=== PATIENT | male | born 1940 | race Caucasian/White ===

== ENCOUNTER → 2016-06-27 | Outpatient (CLI) | payer OTHER | LOC: BHFA 13:30 | PROVIDERS: ATTEND Internal Medicine Cardiovascular Disease | DX: R00.2 Palpitations (principal) ==

== ENCOUNTER 2017-09-26 15:44 | Inpatient (IN) | payer OTHER ==
[2017-09-26] MEDS ORDERED: ONDANSETRON 4 MG/2 ML VIAL IVP ONE (16:04)
[2017-09-26] MEDS ORDERED: NS 1,000 ML IV ONE ×2 (16:04→17:20)
--- NOTE | 2017-09-26 16:04 | EDPHY ---
H & P Stated Complaint: abd pain Source: Patient, Old records Exam Limitations: No limitations - Personal History Current Tetanus/Diphtheria Vaccine: Unsure Current Tetanus Diphtheria and Acellular Pertussis (TDAP): Unsure - Medical/Surgical History Hx Asthma: No Hx Chronic Respiratory Disease: No Hx Diabetes: No Hx Cardiac Disease: No Hx Renal Disease: No Hx Cirrhosis: No Hx Alcoholism: No Hx HIV/AIDS: No Hx Splenectomy or Spleen Trauma: No Other PMH: hyperlipidemia - Social History Smoking Status: Never smoked Time Seen by Provider: 09/26/17 15:57 HPI/ROS: HPI: This is a 77-year-old male who presents with Chief Complaint: abdominal pain Location: periumbilical pain Quality: pain Duration: last night around 8 pm Signs and Symptoms: no fever, + nausea, + vomiting, no hematemesis, no blood in stool, no abdominal bloating, + diarrhea, no back pain, no urinary symptoms, no testicular/groin pain, no indigestion, no chest pain, no shortness of breath Timing:acute Severity:12/22 Context: Patient presents from imaging at this hospital for abdominal x-ray showing nonspecific bowel gas pattern concentrated in the right lower quadrant. Patient presents with complaints of sudden onset around 8:00 p.m.while sitting watching TV of periumbilical moderate, constant nonradiating tenderness. Reports that he ate dinner without difficulty. Nothing made the pain worse or better. He reports that he developed nausea last night and vomited his stomach contents yesterday evening. This morning he called his primary care provider, Dr. Faye, who was able to see him around 9:00 a.m. At that time, laboratory studies were performed and he was sent to outpatient imaging for abdominal x-ray. Patient reports that on the way to the hospital he then again developed some nausea and vomited again. He reports that he has had 2 loose stools within the last 24 hr. Denies any fever/back pain/ testicular groin pain/urinary symptoms. Patient has not eaten any food today. Around 1 or 2:00 p.m. he had approximately 4-6 oz of hot tea with milk. Modifying Factors: see above Comment: ROS: see HPI Constitutional: No fever, no chills, no weight loss Eyes: No blurred vision Respiratory: No shortness of breath, no cough Cardiovascular: No chest pain, no palpitations Gastrointestinal: + nausea, + vomiting, + diarrhea, no hematemesis, no blood in stool Genitourinary: No dysuria, no blood in urine Extremities: No myalgias, no edema Neurologic: No weakness, no numbness Skin: No rashes, no petechiae Hematologic: No bruising, no bleeding MEDICAL/SURGICAL/SOCIAL HISTORY: Medical history: Hyperlipidemia Surgical history: Denies Social history: Retired. . Family history noncontributory. CONSTITUTIONAL: Extremely pleasant polite and cooperative nontoxic-appearing elderly white male, at bedside, awake and alert, no obvious distress HEENT: Atraumatic and normocephalic, PERRL, EOMI. Nares patent; no rhinorrhea; no nasal mucosal edema. Tympanic membranes clear. Oropharynx clear, no exudate and dry oral mucosa. Airway patent. No lymphadenopathy. No meningismus. Cardiovascular: Normal S1/S2, regular rate, regular rhythm, without murmur rub or gallop. PULMONARY/CHEST: Symmetrical and nontender. Clear to auscultation bilaterally. Good air movement. No accessory muscle usage. ABDOMEN: Soft, mildly distended, periumbilical moderate tenderness; no right lower quadrant tenderness; no rebound, no guarding, no peritoneal signs, no masses or organomegaly. No CVAT. Hyperactive bowel sounds x4. EXTREMITIES: 2/2 pulses, strength 5/5, no deformities, no clubbing, no cyanosis or edema. NEUROLOGICAL: no focal neuro deficits. GCS 15. SKIN: Warm and dry, no erythema. no rash. Good capillary refill. ([place]) Constitutional: Initial Vital Signs Temperature (C) 37 C 09/26/17 15:49 Heart Rate 84 09/26/17 15:49 Respiratory Rate 16 09/26/17 15:49 Blood Pressure 136/94 H 09/26/17 15:49 O2 Sat (%) 96 09/26/17 15:49 O2 Delivery Mode Room Air Allergies/Adverse Reactions: No Known Allergies Allergy (Unverified 09/26/17 15:48) Home Medications: Medication Instructions Recorded Aspirin [Aspirin 81mg (*)] 81 mg PO HS 09/26/17 Azithromycin 500 mg PO DAILY 09/26/17 Naproxen Sodium [Aleve 220 MG (*)] 110 mg PO DAILY PRN 09/26/17 Rosuvastatin Calcium [Crestor] 5 mg PO HS 09/26/17 Zolpidem Tartrate [Ambien 5MG (*)] 2.5 mg PO HS PRN 09/26/17 Medical Decision Making - Diagnostics Imaging Results: Imaging Impressions Abdomen X-Ray 09/26/17 10:19 Impression: Nonspecific right flank air-fluid levels. If there is concern for appendicitis, consider CT. A message was left for Dr. Faye at 11:[address] 09/26/17 16:04 Impression: 1. Moderate distention of mid to distal small bowel to the terminal ileum level where there is suspicion of intussusception of the terminal ileum into the cecum. Consider colonoscopy for further characterization to rule out possible lesion at the ileocecal valve or possibly Gastrografin enema to attempt reduction. 2. Normal appendix. Findings discussed with Viji Portillo PAC at 17:10 hour, 09/26/2017. ED Course/Re-evaluation: Reviewed labs from earlier in the morning that showed WBC of 10 K with left shift. Creatinine is 0.8. CT abdomen and pelvis scan with contrast ordered along with 1 L normal saline, IV Dilaudid 0.5 mg, and IV Zofran VS stable upon arrival Reviewed abdominal x-ray via PACs and shows nonobstructive bowel gas pattern. 1700: Called by radiologist, Dr. Abel Forrester, who reports that patient has an intussusception from the terminal ileum to the cecum with moderate bowel obstruction. No signs of appendicitis. ED decision to consult for admission. Spoke with General surgery, Dr. Pereyra, who kindly agrees to come to the emergency room to consult on patient and provide further care. Went to patient's bedside to discuss CT imaging results with patient and his . He is currently calm and comfortable and has politely declined pain medications. NPO Status. This patient was seen under the supervision of my secondary supervising physician. I evaluated care for this patient independently. Discussed this patient with Dr. Schafer who did not see the patient. (Viji Portillo) Differential Diagnosis: Abdominal pain including but not limited to appendicitis, cholecystitis, gastritis and urinary tract infection. (Viji Portillo) Other Provider: PHYSICIAN DOCUMENTATION: The patient was evaluated and managed by the Physician Corporate Relations Director and myself. I have reviewed the chart and agree with the findings and plan of care as documented. In addition, I examined the patient myself at 1615. History confirmed as epigastric abdominal pain. Physical findings as follows: Tenderness at the area of pain but no rebound or guarding. Plan for CT scan discussed and consented. Lipase added. Reviewed labs from earlier today including normal creatinine and white blood cell count [address]990. CT reviewed, plan surgical consultation, seen by Hafsa in ED. I am the secondary supervising physician. (Mani Schafer) - Data Points Medications Given: Discontinued Medications Hydromorphone HCl (Dilaudid) 0.5 mg IVP EDNOW ONE Stop: 09/26/17 16:05 Last Admin: 09/26/17 18:02 Dose: 0.5 mg Sodium Chloride (Ns) 1,000 mls @ 0 mls/hr IV EDNOW ONE; Wide Open PRN Reason: Protocol Stop: 09/26/17 16:05 Last Admin: 09/26/17 16:55 Dose: 1,000 mls Sodium Chloride (Ns) 1,000 mls @ 0 mls/hr IV EDNOW ONE; Wide Open PRN Reason: Protocol Stop: 09/26/17 17:21 Last Admin: 09/26/17 17:56 Dose: Not Given Ondansetron HCl (Zofran) 4 mg IVP EDNOW ONE Stop: 09/26/17 16:05 Last Admin: 09/26/17 16:55 Dose: 4 mg Departure - Departure Dis[facility]: [facility] In[facility] Acute Clinical Impression: Intussusception of cecum Bowel obstruction Qualifiers: Intestinal obstruction type: intussusception Qualified Code(s): K56.1 - Intussusception Condition: Fair
[2017-09-26] MEDS ORDERED: IOPAMIDOL (ISOVUE-300) 100 ML BTL ONE (16:11)
[2017-09-26] MEDS: HYDROmorphONE/DILAUDID 2 MG/ML INJ IVP ONE ×3 (18:02→18:27)
[2017-09-26] MEDS ORDERED: HYDROmorphONE/DILAUDID 1 MG/ML INJ IVP ONE (18:05)
[2017-09-26] MEDS ORDERED: ONDANSETRON 4 MG/2 ML VIAL IVP PRN ×2 (18:08→22:36)
[2017-09-26] MEDS ORDERED: LR 1,000 ML IV SCH (18:30)
--- NOTE | 2017-09-26 20:50 | PDGENHP ---
History and Physical - Chief Complaint Abdominal pain - History of Present Illness This is a 77-year-old gentleman who began having mid epigastric/umbilical abdominal pain last evening it progressed to the right lower quadrant over the course of today. He went to see his primary care doctor who ordered an x-ray. X-ray demonstrated small-bowel obstruction he was sent to the emergency room for evaluation. CT scan demonstrates inception of the terminal ileum into the right colon. The patient admits to vomiting several times prior to coming to the emergency room he has pain which is now mostly in the mid epigastric area and to the left of the umbilicus. He denies fevers or chills he has not had any abnormal bowel movements in the last while. Colonoscopies to date have been normal. History Information - Allergies/Home Medication List Allergies/Adverse Reactions: No Known Allergies Allergy (Unverified 09/26/17 15:48) Home Medications: Aspirin [Aspirin 81mg (*)] 81 mg PO HS 09/26/17 [Last Taken 09/25/17] Azithromycin 500 mg PO DAILY 09/26/17 [Last Taken 09/26/17] Naproxen Sodium [Aleve 220 MG (*)] 110 mg PO DAILY PRN 09/26/17 [Last Taken Unknown] Rosuvastatin Calcium [Crestor] 5 mg PO HS 09/26/17 [Last Taken 09/25/17] Zolpidem Tartrate [Ambien 5MG (*)] 2.5 mg PO HS PRN 09/26/17 [Last Taken Unknown ] I have personally reviewed and updated: medical history, social history, surgical history - Past Medical History Additional medical history: Hyperlipidemia - Surgical History Additional surgical history: Blepharoplasty and lacrimal duct surgery - Family History Positive for: non-pertinent - Social History Smoking Status: Never smoked Alcohol Use: Occasionally Review of Systems Review of Systems: ROS: 10pt was reviewed & negative except for what was stated in HPI & below Gastrointestinal: Reports: vomitting, abdominal pain, abdominal distention Physical Exam Physical Exam: Alert oriented to person place and time No apparent distress Appears stated age Sclerae are anicteric, pupils 3 mm reactive Oropharynx moist without lesions No JVD no thyromegaly no cervical or supraclavicular adenopathy Trachea midline Clear to auscultation bilaterally Regular rate and rhythm Abdomen softly distended tender to the left of the umbilicus no peritoneal signs No hernias 2+ over 2+ femoral pulses Extremities without edema Normal skin turgor and tone no rashes Normal affect Temp Pulse Resp BP Pulse Ox 36.2 C 80 16 130/78 H 97 09/26/17 20:00 09/26/17 20:00 09/26/17 20:00 09/26/17 20:00 09/26/17 20:00 O2 (L/minute) 2 Lab Data & Imaging Review Laboratory studies from his outpatient visit with his primary care physician reviewed White blood cell count 10.0 with a left shift Sodium 140 potassium 4.3 chloride 106 bicarb 19 BUN 17 creatinine 0.8 glucose 127 ALT 18 AST 40 alkaline phosphatase 104 calcium 9.7 Lipase 101 IU/L (23-300) 09/26/17 17:35 Imaging Review: Imaging Impressions Abdomen X-Ray 09/26/17 10:19 Impression: Nonspecific right flank air-fluid levels. If there is concern for appendicitis, consider CT. A message was left for Dr. Faye at 11:[address] 09/26/17 16:04 Impression: 1. Moderate distention of mid to distal small bowel to the terminal ileum level where there is suspicion of intussusception of the terminal ileum into the cecum. Consider colonoscopy for further characterization to rule out possible lesion at the ileocecal valve or possibly Gastrografin enema to attempt reduction. 2. Normal appendix. Findings discussed with Viji Portillo PAC at 17:10 hour, 09/26/2017. X-rays and CT scan personally reviewed on [facility] PACS system with patient and spouse Assessment & Plan Assessment: Bowel obstruction (Acute) Intussusception of cecum (Acute) Plan: Intussusception of the small bowel likely source is malignant in a patient of his age. Recommendations are right colectomy for definitive treatment. The risks benefits and alternatives to surgery have been clearly outlined with the patient. The risks include but are not limited to bleeding, infection, injury to other bowel or adjacent structures necessitating further intervention. All questions were addressed. Verbal confirmation of understanding was obtained prior to written consent. Preoperative antibiotics will be given Invanz 1 g IV.
[2017-09-26] MEDS ORDERED: PROPOFOL 200 MG/20 ML VIAL ONE (20:53)
[2017-09-26] MEDS ORDERED: ERTAPENEM 1 GM VIAL IV ONE ×2 (20:54→21:45)
[2017-09-26] MEDS ORDERED: ROCURONIUM 100 MG/10 ML VIAL ONE (20:55)
[2017-09-26] MEDS ORDERED: fentaNYL 100 MCG/2 ML INJ ONE ×4 (20:56→23:08)
[2017-09-26] MEDS ORDERED: BUPIVACAINE 0.5% 30 ML SDV ONE (21:03)
[2017-09-26] MEDS ORDERED: LIDOCAINE 1% 300 MG/30 ML SDV ONE (21:03)
[2017-09-26] MEDS ORDERED: fentaNYL 100 MCG/2 ML INJ IVP ONE (21:45)
[2017-09-26] MEDS ORDERED: NALOXONE HCL 0.4 MG/ML INJ IVP PRN (22:36)
[2017-09-26] MEDS ORDERED: HYDROmorphONE/DILAUDID 2 MG/ML INJ IVP PRN (22:36)
[2017-09-26] MEDS ORDERED: fentaNYL 100 MCG/2 ML INJ IVP PRN (22:36)
--- NOTE | 2017-09-26 22:36 | PDANEPAE ---
ANE History of Present Illness Ex-Lap possible Bowel ANE Past Medical History - Cardiovascular History Hx Hypertension: Yes Hx Coronary Artery / Peripheral Vascular Disease: Yes - Pulmonary History Hx Oxygen in Use at Home: No Hx Sleep Apnea: No Sleep Apnea Screening Result - Last Documented: Negative - Endocrine History Hx Diabetes: No ANE Review of Systems Review of Systems: - Exercise capacity Exercise capacity: >=4 METS ANE Patient History - Allergies Allergies/Adverse Reactions: No Known Allergies Allergy (Unverified 09/26/17 15:48) - Home Medications Home Medications: Aspirin [Aspirin 81mg (*)] 81 mg PO HS 09/26/17 [Last Taken 09/25/17] Azithromycin 500 mg PO DAILY 09/26/17 [Last Taken 09/26/17] Naproxen Sodium [Aleve 220 MG (*)] 110 mg PO DAILY PRN 09/26/17 [Last Taken Unknown] Rosuvastatin Calcium [Crestor] 5 mg PO HS 09/26/17 [Last Taken 09/25/17] Zolpidem Tartrate [Ambien 5MG (*)] 2.5 mg PO HS PRN 09/26/17 [Last Taken Unknown ] - NPO status NPO Since - Liquids (Date): 09/26/17 NPO Since - Liquids (Time): 14:00 NPO Since - Solids (Date): 09/25/17 NPO Since - Solids (Time): 20:00 - Smoking Hx Smoking Status: Never smoked - Alcohol Use Alcohol Use: Occasionally ANE Labs/Vital Signs - Vital Signs Blood Pressure: 130/78 Heart Rate: 82 Respiratory Rate: 16 O2 Sat (%): 96 Height: 165.1 cm Weight: 72.575 kg ANE Physical Exam - Airway Neck exam: FROM Mallampati Score: Class 2 Mouth exam: normal dental/mouth exam - Pulmonary Pulmonary: clear to auscultation - Cardiovascular Cardiovascular: regular rate and rhythym - ASA Status ASA Status: II, E ANE Anesthesia Plan Anesthesia Plan: general endotracheal anesthesia
[2017-09-26] MEDS ORDERED: ONDANSETRON 4 MG/2 ML VIAL ONE (23:08)
[2017-09-26] MEDS ORDERED: DEXAMETHASONE 4 MG/ML VIAL ONE (23:08)
[2017-09-26] MEDS ORDERED: SUGAMMADEX SODIUM 200 MG/2 ML VIAL IVP ONE (23:49)
--- NOTE | 2017-09-27 00:11 | POSTOPPROG ---
Post Op Note Date of Operation: 09/27/17 Surgeon: Daron Pereyra [employer] Professional: none Anesthesiologist: Nigel Roa Anesthesia: GET(General Endotracheal) Pre-op Diagnosis: Intussusception terminal ileum into right colon Post-op Diagnosis: Same Procedure: Right colon resection Findings: Terminal ileum within the right colon Inf/Abcess present in the surg proc area at time of surgery?: No EBL: Minimal Complications: None Specimen(s): Right Colon To permanent pathology
--- NOTE | 2017-09-27 00:13 | POSTANESTH ---
Post Anesthetic Evaluation Cardiovascular Status: Normal, Stable Respiratory Status: Similar to Pre-op Cond. Level of Consciousness/Mental Status: Mildly Sleepy, Arousable Pain Control: Adequate, Prn Tx Ordered Nausea/Vomiting Control: Adequate, Prn Tx Ordered Complications Possibly Related to Anesthesia: None Noted
[2017-09-27] MEDS: HYDROmorphONE/DILAUDID 1 MG/ML INJ IVP PRN ×3 (03:44→11:13)
--- NOTE | 2017-09-27 07:58 | PDMN ---
Medical Necessity Medical necessity: Pt meets IP criteria per MD; est los >2 mn for eval/tx of intussusception of the small bowel; admit for surgical intervention, further monitoring, IVFS & pain management; per H&P & order 09/26/17
--- NOTE | 2017-09-27 08:34 | GOP ---
[f rep st] OPERATIVE REPORT DATE OF OPERATION: SURGEON: Daron Pereyra MD ANESTHESIA: General endotracheal anesthesia was used. ANESTHESIOLOGIST: Travis Roa DO. PREOPERATIVE DIAGNOSIS: Intussusception terminal ileum into the right colon. POSTOPERATIVE DIAGNOSIS: Intussusception terminal ileum into the right colon. PROCEDURE PERFORMED: Right colectomy en bloc. FINDINGS: SPECIMENS: Right colon and terminal ileum to permanent pathology. ESTIMATED BLOOD LOSS: 50 mL. INDICATIONS: This is a 77-year-old gentleman presents with intussusception and has been apprised of risks and benefits of proceeding. He has no other major health concerns. Seen initially by his [facility] physician and subsequently evaluated by CT scan analysis. This shows intussusception in the midportion of the cecum. Due to the high likelihood of malignancy in a gentleman of this age, right colectomy was elected upon. Consent was obtained. DESCRIPTION OF PROCEDURE: The patient was brought to the operating room. After induction of endotra cheal anesthesia in supine position, his abdomen was prepped with chlorhexidine and draped sterilely. Time-out procedure was then performed according to institutional standards. Local anesthetic was i nfused in skin and subcutaneous tissues and a laparotomy is made through the midline, going around th e umbilicus. This is deepened with electrocautery. The fascia was divided sharply. The abdomen was entered. There was a copious amount of serous fluid likely from the intussusception edema. This wa s aspirated and the decision to make a right colectomy after palpating the intussusception was still within the right colon was proceeded with. The right colon was mobilized along the peritoneal reflec tion using electrocautery after medialization of the cecum and the right colon. The omentum was diss ected away from the right colon using electrocautery. The terminal ileum was divided and ligature en ergy is used to control the mesentery. After identifying and keeping the duodenum out of the field o f dissection the right colon was completely divided along the mesenteric edge and passed off as a spe cimen. A [id number] functional end-to-end anastomosis was made using a HUE-75 stapler to divide th e colon and at the small bowel individually. The enterotomy was made on the antimesenteri c border of the colon and the terminal ileum and stapled anastomosis was created. This was then clos ed. The enterotomy was closed using 3-0 PDS and imbricated with 3-0 Vicryl suture. The abdomen was inspected. Hemostasis was assured. The mesenteric defect was then reapproximated using 3-0 Vicryl. The clean closure technique was then performed to reapproximate the fascia using #1 PDS and the skin was reapproximated using 4-0 Monocryl. Dermabond was applied. The patient awakened, extubated, roopa en to recovery room in stable condition. No immediate complications. COMPLICATIONS: There were no complications. /[id number]/MODL
[2017-09-27] MEDS ORDERED: ACETAMINOPHEN 325 MG TAB PO PRN (09:09)
--- NOTE | 2017-09-27 09:15 | SOAPPROG ---
SOAP Progress Note Assessment/Plan: Assessment/Plan: POD#1 s/p right colectomy for intussusception Doing well Appropriate pain. No flatus/some difficulty initiating urination AVSS RRR CTA Abd soft, incision c/d No edema Doing well Clr liq diet Oral meds restart home meds Flomax for BPH sx 09/27/17 09:12 Objective: Vital Signs Temp Pulse Resp BP Pulse Ox 36.7 C 75 16 107/58 L 95 09/27/17 08:48 09/27/17 08:48 09/27/17 08:48 09/27/17 08:48 09/27/17 08:48 09/26/17 09/27/17 09/28/17 05:59 05:59 05:59 Intake Total 2400 258 Output Total 20 Balance 2380 258 ICD10 Worksheet Patient Problems: Problems Problem Status Onset Bowel obstruction Acute Intussusception of cecum Acute
[2017-09-27] MEDS: TAMSULOSIN HCL 0.4 MG CAP PO SCH (09:38)
[2017-09-27] MEDS: oxyCODONE IR 5 MG TAB PO PRN (09:38)
[2017-09-27] MEDS ORDERED: TAMSULOSIN HCL 0.4 MG CAP PO ONE (12:45)
[2017-09-27] MEDS: IBUPROFEN 600 MG TAB PO SCH ×3 (12:54→20:54)
--- NOTE | 2017-09-27 15:49 | ASMTCMCOM ---
CM Note CM Note Notes: Pt had srugery yesterday. Met with pt to discuss DC needs. Pt states he is doing well and his can provide care for him at home when he DCs. CM available if pt's needs change. Date Signed: 09/27/2017 03:49 PM Electronically Signed By:Moriah Mera LCSW
[2017-09-27] MEDS: ROSUVASTATIN CALCIUM 10 MG TAB PO SCH (20:50)
[2017-09-28] MEDS: IBUPROFEN 600 MG TAB PO SCH ×4 (06:10→20:46)
[2017-09-28] MEDS: oxyCODONE IR 5 MG TAB PO PRN (08:26)
[2017-09-28] MEDS: TAMSULOSIN HCL 0.4 MG CAP PO SCH (08:26)
[2017-09-28] MEDS: HYDROmorphONE/DILAUDID 1 MG/ML INJ IVP PRN (12:07)
[2017-09-28] MEDS ORDERED: NALOXONE HCL 0.4 MG/ML INJ IVP PRN (12:48)
[2017-09-28] MEDS ORDERED: HYDROmorphONE/DILAUDID 6 MG/30 ML PCA IV PRN (12:48)
--- NOTE | 2017-09-28 12:52 | SOAPPROG ---
SOAP Progress Note Assessment/Plan: Assessment/Plan: POD#2 s/p right colectomy for intussusception Doing well Appropriate pain. 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
[2017-09-28] MEDS: ROSUVASTATIN CALCIUM 10 MG TAB PO SCH (20:47)
[2017-09-29] MEDS: IBUPROFEN 600 MG TAB PO SCH ×4 (06:05→21:48)
[2017-09-29] MEDS: TAMSULOSIN HCL 0.4 MG CAP PO SCH (09:31)
[2017-09-29] MEDS: oxyCODONE IR 5 MG TAB PO PRN ×2 (10:58→15:49)
--- NOTE | 2017-09-29 12:14 | ASMTCMCOM ---
CM Note CM Note Notes: Reviewed chart and discussed w/RN. Met w/pt and to discuss dc plan. Anticipate dc home w/supportive when medically ready, no dc needs at this time. Date Signed: 09/29/2017 12:13 PM Electronically Signed By:Sharon Harris RN
--- NOTE | 2017-09-29 13:00 | SOAPPROG ---
SOAP Progress Note Assessment/Plan: Assessment/Plan: POD#3 s/p right colectomy for intussusception Doing well Appropriate pain. 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
[2017-09-29] MEDS: ROSUVASTATIN CALCIUM 10 MG TAB PO SCH (21:49)
[2017-09-30] MEDS: IBUPROFEN 600 MG TAB PO SCH (08:35)
[2017-09-30] MEDS: TAMSULOSIN HCL 0.4 MG CAP PO SCH (08:35)
[2017-09-30] MEDS: oxyCODONE IR 5 MG TAB PO PRN (08:44)
--- NOTE | 2017-09-30 09:32 | SOAPPROG ---
SOAP Progress Note Assessment/Plan: Assessment:no overnight issues. avss. comfortable. abd soft. incis clean. doing well. home today. Plan: 09/30/17 09:32 Objective: Vital Signs Temp Pulse Resp BP Pulse Ox 36.4 C 62 18 121/68 H 94 09/30/17 07:58 09/30/17 08:45 09/30/17 08:45 09/30/17 07:58 09/30/17 08:45 09/29/17 09/30/17 10/01/17 05:59 05:59 05:59 Intake Total 702 203 Balance 702 203 ICD10 Worksheet Patient Problems: Problems Problem Status Onset Bowel obstruction Acute Intussusception of cecum Acute
--- NOTE | 2017-09-30 10:02 | GDS ---
[f rep st] DISCHARGE SUMMARY REASON FOR ADMISSION: Intussusception. HOSPITAL COURSE: 77-year-old male admitted with a small-bowel obstruction secondary to intussuscepti on. He underwent an uncomplicated right hemicolectomy. He had a benign postoperative course. He wa s discharged to home on postoperative day #4 in good condition, tolerating a regular diet, ambulating independently with adequate pain control with oral analgesics. He was to resume all pre-hospital me dications. He will be seen in followup by Dr. Pereyra in 2 weeks. He was given prescriptions for No rco as needed for discomfort. Full activity instructions were explained prior to leaving. /[id number]/MODL
[2017-09-30 10:45] VITALS: BP 97/59
== END 2017-09-30 11:17 | disposition home or self-care (01) | DRG 331 ==
LOC: EDSTATUS 15:44 → F1N 18:40
PROVIDERS: ADMIT Surgery; ATTEND Surgery
PROC: 0DTF0ZZ Resection of Right Large Intestine, Open Approach (ICD-10-PCS; principal; 2017-09-26 21:00)
DX: K56.1 Intussusception (principal); K56.609 Unspecified intestinal obstruction, unspecified as to partial versus complete obstruction; I10 Essential (primary) hypertension
CPT/HCPCS: 96374; J1100; J1170; J1335; J2405; J2704; J3010; Q9967

== ENCOUNTER → 2018-05-23 | Outpatient (CLI) | payer OTHER ==
[~2018-05-23] MED LIST: IOPAMIDOL (ISOVUE-300) 200 ML BTL ONE
== END | disposition home or self-care (01) ==
LOC: FIMAGING 08:33
PROVIDERS: ATTEND Physician Assistant Medical
DX: R31.0 Gross hematuria (principal)
CPT/HCPCS: 74178; Q9967; 82565-PO